=== PATIENT | female | born 1995 | race Caucasian/White ===

== ENCOUNTER 2016-12-11 12:21 | Emergency (ER) | payer OTHER ==
[2016-12-11 12:33] VITALS: BP 125/81
--- NOTE | 2016-12-11 13:20 | UC ---
Throat Pain/Nasal Giancarlo HPI - History of Current Complaint Chief Complaint: UCGI Stated Complaint: VOMITING,SORE THROAT,FEVER,EAR PAIN Time Seen by Provider: 12/11/16 13:10 Hx Last Menstrual Period: 11/13/16 Onset/Duration: Sudden Onset - Nausea vomiting, sore throat, Lasting Days - 4, Still Present - ongoing Cough: None Associated Signs & Symptoms: Positive: Dysphagia, Nasal Discharge, Vomiting. Negative: Wheezing, Hoarseness, Sinus Discomfort, Rash - Allergies/Home Medications Allergies/Adverse Reactions: Allergies Allergy/AdvReac Type Severity Reaction Status Date / Time No Known Allergies Allergy Verified 12/11/16 12:33 Home Medications: Home Medications Norgestimate-Eth Estradiol(NF) [Ortho Tri-Cyclen (NF)] 1 tab PO DAILY 12/11/16 [ History Confirmed 12/11/16] PMH/Surg Hx/FS Hx/Imm Hx GI/ History: Kidney Stones - Surgical History Surgical History: Yes Surgery Procedure, Year, and Place: tear duct as - Family History Known Family History: Negative: Cardiac Disease, Hypertension, Diabetes - Social History Occupation: Employed Full-time, Student Lives: With Family Alcohol Use: None Substance Use Type: None Smoking Status (MU): Never Smoked Tobacco Have You Smoked in the Last Year: No - Immunization History Vaccination Up to Date: Yes Review of Systems ENT: Sore Throat, Ear Ache Gastrointestinal: Vomiting All Other Systems Reviewed And Are Negative: Yes Physical Exam Triage Information Reviewed: Yes Appearance: No Pain Distress, Well-Nourished, Ill-Appearing Vital Signs: Initial Vital Signs Temp 99 F 12/11/16 12:25 Pulse 88 12/11/16 12:25 Resp 18 12/11/16 12:25 BP 125/81 12/11/16 12:25 Pulse Ox 98 12/11/16 12:25 Vital Signs Reviewed: Yes Eyes: Positive: Conjunctiva Clear ENT: Positive: Pharyngeal erythema - with petechia, Nasal congestion, TMs normal Neck: Positive: Tenderness @ - Anterior cervical nodes right> left, Enlarged Nodes @ - bilateral anterior cervical Respiratory Exam: Normal Cardiovascular Exam: Normal Abdomen Description: Positive: Nontender, No Organomegaly, Soft Bowel Sounds: Positive: Present Musculoskeletal Exam: Normal Neurological Exam: Normal Psychological Exam: Normal Skin Exam: Normal Throat Pain/Nasal Course/Dx - Differential Dx/Diagnosis Differential Diagnosis/HQI/PQRI: Peritonsillar Abscess, Pharyngitis, URI Provider Diagnoses: Acute URI. Vomiting. Discharge - Discharge Plan Condition: Stable Disposition: HOME Prescriptions: Ondansetron ODT TAB* [Zofran 4 MG Odt TAB*] 4 mg PO Q6H PRN #14 tab.odt PRN Reason: Nausea/Vomiting Patient Education Materials: Upper Respiratory Infection (ED), Acute Nausea and Vomiting (ED), Ondansetron (By mouth) Additional Instructions: NASAL SPRAYS AND DROPS: Afrin in the PUMP/ MIST bottle. Tilt your head down and look at the floor while doing a strong sniff with the spray. Decongestant nasal sprays and drops often give dramatic relief from congestion. They are often recommended for patients with sinus infection to assist with sinus drainage. Persons with high blood pressure should consult the doctor before using these nasal sprays. Afrin and Timo-Synephrine are common [id number]-oqb-[id number] preparations. They should not be used for more than five days, as "rebound" congestion can occur - - the congestion flares as the drug wears off. A way of dealing with this rebound congestion problem is to medicate only one nostril each time, allowing the other nostril to recover from the medicine' s effects. When you no longer need the drug during the day, spray only one nostril each night. This helps you sleep well without severe rebound congestion. Call the doctor if you develop severe headache, palpitations, or chest pain. NAVITIME JAPANMED SINUS RINSE: CHECK OUT AT [facility] Saline nasal wash helps with mucous, allergies and congestion. It can be used up to twice a day or only as needed. Use lukewarm tap water. It does not have to be sterilized or distilled water. Do 1/3 on each side and snort out of both nostrils. Repeat the process with 1/6 of the bottle on each side with snorting in between to finish the solution in the bottle
[2016-12-11] MEDS ORDERED: Ondansetron ODT TAB* 4 MG PO ONE (13:21)
[2016-12-11] MEDS ORDERED: Ondansetron INJ* 2 MG/ML VIAL IM ONE (13:45)
== END 2016-12-11 14:25 | disposition home or self-care (01) ==
LOC: UCCORT 12:21
DX: J06.9 Acute upper respiratory infection, unspecified (principal); R11.10 Vomiting, unspecified
CPT/HCPCS: 87651; 96372; 99212; A9270-GY; G0463; J2405

== ENCOUNTER 2017-07-14 16:13 | Emergency (ER) | payer OTHER ==
[2017-07-14 17:09] VITALS: BP 124/63
--- NOTE | 2017-07-14 17:18 | UC ---
Respiratory Complaint HPI - HPI Summary HPI Summary: 22F presents with cough and sinus congestion for a week. She admits to pressure behind her ears. She tried some OTC cough medication without relief. She denies any chest pain or SOB. She denies any abdominal pain, nausea or vomiting. She admits to minimal sore throat. She denies any headache. She has minimal sinus pressure. She states her ears and cough are bothering her the most. - History of Current Complaint Chief Complaint: UCGeneralIllness Stated Complaint: SINUS,COUGH,BILATERAL EAR PAIN Time Seen by Provider: 07/14/17 17:11 Hx Last Menstrual Period: 11/13/16 Pain Intensity: 2 - Allergies/Home Medications Allergies/Adverse Reactions: Allergies Allergy/AdvReac Type Severity Reaction Status Date / Time No Known Allergies Allergy Verified 07/14/17 17:09 PMH/Surg Hx/FS Hx/Imm Hx Endocrine History: Other Other Endocrine History: no DM Respiratory History: Other Other Respiratory History: no asthma - Surgical History Surgical History: Yes Surgery Procedure, Year, and Place: tear duct as - Family History Known Family History: Negative: Cardiac Disease, Hypertension, Diabetes - Social History Alcohol Use: None Substance Use Type: None Smoking Status (MU): Never Smoked Tobacco Have You Smoked in the Last Year: No - Immunization History Vaccination Up to Date: Yes Review of Systems Constitutional: Negative ENT: Ear Ache, Nasal Discharge Respiratory: Cough All Other Systems Reviewed And Are Negative: Yes Physical Exam Triage Information Reviewed: Yes Appearance: Well-Appearing Vital Signs: Initial Vital Signs Temp 99.4 F 07/14/17 17:05 Pulse 86 07/14/17 17:05 Resp 16 07/14/17 17:05 BP 124/63 07/14/17 17:05 Pulse Ox 99 07/14/17 17:05 Vital Signs Reviewed: Yes Eye Exam: Normal ENT: Positive: Normal ENT inspection, Pharynx normal, Nasal congestion, TMs normal. Negative: Sinus tenderness Neck: Positive: Supple, Nontender, No Lymphadenopathy Respiratory: Positive: Lungs clear, Normal breath sounds Cardiovascular: Positive: RRR Abdomen Description: Positive: Nontender, Soft Bowel Sounds: Positive: Present Musculoskeletal Exam: Normal Neurological Exam: Normal Psychological Exam: Normal Skin Exam: Normal UC Diagnostic Evaluation - Laboratory O2 Sat by Pulse Oximetry: 99 Respiratory Course/Dx - Course Course Of Treatment: 22F presents with cough and sinus congestion for a week. She admits to pressure behind her ears. She tried some OTC cough medication without relief. She denies any chest pain or SOB. She denies any abdominal pain , nausea or vomiting. She admits to minimal sore throat. She denies any headache. She has minimal sinus pressure. She states her ears and cough are bothering her the most. on exam lungs CTA. pharynx normal. fluid behind TM but no infection. will treat with tessalon for cough and encourage sudafed for sinus congestion. no sinus tenderness on exam and does not appear to have sinus infection at this point. patient understand and agrees with plan. - Differential Dx/Diagnosis Differential Diagnosis/HQI/PQRI: Bronchitis, Laryngitis, Lower Resp Infection Provider Diagnoses: upper respiratory infection Discharge - Discharge Plan Condition: Good Disposition: HOME Prescriptions: Benzonatate CAP* [Tessalon 100 MG CAP*] 100 mg PO TID #21 cap Patient Education Materials: Upper Respiratory Infection (ED) Referrals: Samia Gong MD [Primary Care Provider] - Additional Instructions: Use Tessalon three times a day for cough Use saline in the nose for nasal congestion Use humidifier or place warm bowls of water around the room for cough Cough can last up to 4 weeks Follow up with primary care physician in 5 days Return to ED if develop any new or worsening symptoms
== END 2017-07-14 17:23 | disposition home or self-care (01) ==
LOC: UCCORT 16:13
DX: J06.9 Acute upper respiratory infection, unspecified (principal)
CPT/HCPCS: 99212; G0463

== ENCOUNTER 2019-04-01 18:55 | Emergency (ER) | payer OTHER ==
--- OUTSIDE RECORDS SUMMARY | 2019-04-01 19:08 | XMS REPORT | Continuity of Care Document ---
:1995 External Reference #:[id number] Author Name Samia Gong M.D. Address [address] [place] [address] Problems Description No Information Available Social History Type Date Description Comments Sex Unknown Tobacco Use Start: Unknown Never Smoked Cigarettes ETOH Use Never used alcohol Recreational Drug Use Never Used Drugs Tobacco Use Start: Unknown Patient has never smoked Smoking Status Reviewed: 01/25/18 Patient has never smoked Seat Belt/Car Seat Always uses seat belt Allergies, Adverse Reactions, Alerts Active Allergies Reaction Severity Comments Date Azithromycin 01/05/2018 Inactive Allergies NKDA 07/05/2016 Medications Active Medications SIG Qnty Indications Ordering Provider Date Loratadine 1 by mouth every 90caps J30.1 Samia Gong M.D. 02/07/2019 10mg day Capsules Fluticasone 2 spray each 32gm J30.1 Samia Gong M.D. 02/07/2019 Propionate nostril every day 50mcg/Act Suspension Ibuprofen 1 by mouth every 60tabs K00.6 Samia Gong M.D. 09/06/2018 600mg Tablets 6 hours as needed Penicillin V 1 by mouth four 30tabs K00.6 Samia Gong M.D. 09/06/2018 Potassium times a day 250mg Tablets History Medications No Active Medications Unknown 09/06/2018 - 09/06/2018 Medications Administered in Office Medication SIG Qnty Indications Ordering Provider Date PPD Injection Samia Gong M.D. 04/03/2018 PPD Injection Nurse 04/03/2018 PPD Injection Samia Gong M.D. 06/09/2017 PPD Injection Nurse 06/07/2017 PPD Injection Nurse 06/23/2016 History of Polio infection Samia Gong M.D. 08/16/2001 Injection History of Varicella infection Samia Gong M.D. 06/10/1999 Injection Immunizations CPT Code Status Date Vaccine Lot # [id number] Given 04/03/2018 Influenza Virus (Afluria) Split Virus 3 Years Of Age And Older [id number] Given 04/03/2018 Influenza Virus (Afluria) Split Virus 3 Years Of [id number] Age And Older [id number] Given 07/28/2017 Influenza Virus (Afluria) Split Virus 3 Years Of Age And Older [id number] Given 07/28/2017 Influenza Virus (Afluria) Split Virus 3 Years Of [id number] Age And Older [id number] Given 06/23/2016 Influenza Vaccine (Fluvirin) 3 Years Of Age Or [id number] Older 06878 Given 04/20/2012 Hepatitis A Vaccine [id number] Given 03/05/2008 Tetanus,Diphtheria,Adut/Adol Pertussis 32286 Given 03/05/2008 Gardasil 95972 Given 10/23/1997 MMR Virus Immunization [id number] Given 1996 Hepatitis B Vaccine Vital Signs Date Vital Result Comment 02/07/2019 10:58am BP Systolic 108 mmHg BP Diastolic 62 mmHg 09/06/2018 1:34pm BP Systolic 120 mmHg BP Diastolic 80 mmHg Heart Rate 66 /min Height 61 inches 5'1" Weight 122.00 lb BMI (Body Mass Index) 23.0 kg/m2 O2 % BldC Oximetry 98 % Results Description No Information Available Procedures Description No Information Available Medical Devices Description No Information Available Encounters Type Date Location Provider Dx Diagnosis Office Visit 09/06/2018 Main Office Samia Gong M.D. K00.6 Disturbances in tooth 1:30p eruption Assessments Date Code Description Provider 02/07/2019 J30.1 Allergic rhinitis due to pollen Samia Gong M.D. 02/07/2019 R11.0 Nausea Samia Gong M.D. 09/06/2018 K00.6 Disturbances in tooth eruption Samia Gong M.D. Plan of Treatment Future Appointment(s):08/03/2019 8:00 am - Nurse at [id number]/13/2019 10: 30 am - Samia Gong M.D. at [facility]/11/2018 - Samia Gong M.D.H65.02 Acute serous otitis media, left earNew Medication:Mucinex D 60-600 mg - 1 po bidComments:trial of decongestants if not better ENT referral Functional Status Description No Information Available Mental Status Description No Information Available Referrals Description No Information Available
[2019-04-01 19:13] VITALS: BP 138/80
--- NOTE | 2019-04-01 19:17 | UC ---
Complaint Female HPI - HPI Summary HPI Summary: 23-year-old female who started today with some low back pain. As the day has progressed that has increased and she has had some radiating left-sided pain. Her period is not due for 2 weeks. She is not sexually active presently. She has a history of kidney stones. She did notice mild pinkness to her urine today. She denies any burning on urination. She denies any fever or chills. - History Of Current Complaint Chief Complaint: UCGU Stated Complaint: BLOOD IN URINE/BACK PAIN/ABD CRAMPING Time Seen by Provider: 04/01/19 19:06 Hx Obtained From: Patient Hx Last Menstrual Period: 03/11/19 ?: No Onset/Duration: Sudden Onset Timing: Constant Severity Initially: Moderate Severity Currently: Moderate Pain Intensity: 5 Character: Sharp, Dull Aggravating Factor(s): Nothing Alleviating Factor(s): Nothing Associated Signs And Symptoms: Positive: Back Pain. Negative: Fever, Vaginal Bleeding/Discharge, Vaginal Discharge - Allergies/Home Medications Allergies/Adverse Reactions: Allergies Allergy/AdvReac Type Severity Reaction Status Date / Time azithromycin AdvReac Vomiting Verified 04/01/19 19:08 Home Medications: Home Medications Bcp 1 tab PO BEDTIME 04/01/19 [History Confirmed 04/01/19] PMH/Surg Hx/FS Hx/Imm Hx Previously Healthy: Yes GI/ History: Kidney Stones - Surgical History Surgical History: Yes Surgery Procedure, Year, and Place: tear duct as - Family History Known Family History: Negative: Cardiac Disease, Hypertension, Diabetes - Social History Lives: With Family Alcohol Use: Occasionally Substance Use Type: None Smoking Status (MU): Never Smoked Tobacco Have You Smoked in the Last Year: No - Immunization History Vaccination Up to Date: Yes Review of Systems All Other Systems Reviewed And Are Negative: Yes Genitourinary: Positive: Hematuria - Very mild occasional pink urine today.. Negative: Vaginal/Penile Burning, Vaginal/Penile Itching, Vaginal/Penile Discharge, Vaginal/Penile Pain, Vaginal/Penile Tenderness, Abnormal Bleeding Is Patient Immunocompromised?: No Physical Exam Triage Information Reviewed: Yes Appearance: Well-Appearing, No Pain Distress, Well-Nourished Vital Signs: Initial Vital Signs Temp 98.7 F 04/01/19 19:09 Pulse 85 04/01/19 19:09 Resp 16 04/01/19 19:09 BP 138/80 04/01/19 19:09 Pulse Ox 100 04/01/19 19:09 Eyes: Positive: Conjunctiva Clear ENT: Positive: Hearing grossly normal, Pharynx normal, TMs normal, Uvula midline Neck: Positive: Supple, Nontender, No Lymphadenopathy Respiratory: Positive: Lungs clear, Normal breath sounds, No respiratory distress, No accessory muscle use Cardiovascular: Positive: RRR, No Murmur, Pulses Normal, Brisk Capillary Refill Abdomen Description: Positive: No Organomegaly, Soft, Other: - Very mild left sided discomfort on deep palpation but no rigidity rebound or guarding. No pelvic pain.. Negative: CVA Tenderness (R), CVA Tenderness (L), Distended, Guarding, Hepatomegaly, McBurney's Point Tenderness, Splenomegaly Bowel Sounds: Positive: Present Musculoskeletal: Positive: Strength Intact, ROM Intact, No Edema Neurological: Positive: Alert, Muscle Tone Normal Psychological Exam: Normal Skin Exam: Normal Complaint Female Dx - Course Course Of Treatment: Ct Abdomen/Pelvis without contrast: FINDINGS: Lungs: No acute findings in visualized lung bases. Liver: Unremarkable. No mass. Gallbladder and bile ducts : Unremarkable. No calcified gallstones. No ductal dilation. Pancreas: Unremarkable. No ductal dilation. Spleen: Unremarkable. No splenomegaly. Adrenals: Unremarkable. No mass. Kidneys and ureters: No hydronephrosis. 3 mm calcification noted in the left pelvis, suggesting either phleboliths or distal ureteral calculus. Single punctate nonobstructing calculus in lower pole of right kidney. 2 nonobstructing calculi in the interpolar region of the left kidney, largest measuring 5 mm. Stomach and bowel: No dilated bowel to suggest obstruction. Appendix: Not identified. Intraperitoneal space: Small amount of free fluid in the pelvis. No free intraperitoneal air. Intraperitoneal space: No free air or significant free fluid. Lymph nodes: No enlarged lymph nodes. Bladder: The urinary bladder is decompressed but contains no calcified stones. Reproductive: Unremarkable as visualized. Bones/joints: No acute fracture. Soft tissues: Unremarkable. IMPRESSION: 1. 3 mm calcification in left pelvis, likely a distal left ureteral stone. Phlebolith less likely but not excluded. If clinically indicated, repeat study with IV contrast couldn be performed to ascertain location of calculus. 2. Bilateral nonobstructing renal calculi. No hydronephrosis. 3. Small amount of free fluid in the pelvis. 4. Appendix not visualized. The patient was given Toradol 30 mg IM with good pain relief. She was given 1 [place] tablet here and a prescription for that for severe pain and to continue Motrin 600 mg by mouth every 8 hours for mild pain. She is to increase fluids. Because of her insurance she needs to go through her primary care provider for referral to a urologist which I advised her to do early this week. The patient is in agreement with this plan of action. She is to go to the emergency room if she develops any fever, chills, vomiting or worsening pain. - Differential Dx/Diagnosis Provider Diagnosis: Kidney stones Discharge ED - Sign-Out/Discharge Documenting (check all that apply): Patient Departure All imaging exams completed and their final reports reviewed: Yes - Discharge Plan Condition: Good Disposition: HOME Prescriptions: Ibuprofen TAB* [Motrin TAB* 600 MG] 600 mg PO Q8H PRN #15 tab PRN Reason: Pain - Mild oxyCODONE/Acetamin 5/325 MG* [Percocet 5/325 TAB*] 1 tab PO Q6H PRN #10 tab MDD 6 PRN Reason: Pain - Severe Patient Education Materials: Kidney Stones (ED) Referrals: Samia Gong MD [Primary Care Provider] - Additional Instructions: Increase fluids, use a Motrin every 8 hours for mild pain and the Percocet for severe pain. Definite follow-up with your primary care provider for a referral to a urologist. Go to the emergency room if you develop fever, chills, worsening symptoms or vomiting. - Billing Disposition and Condition Condition: GOOD Disposition: Home
[2019-04-01] MEDS ORDERED: Ketorolac INJ* 30 MG/ML 1 ML VIAL IM ONE (19:49)
[2019-04-01] MEDS ORDERED: HYDROcodone/ACETAMIN 5-325 MG* 1 TAB PO ONE (21:00)
== END 2019-04-01 21:09 | disposition home or self-care (01) ==
LOC: UCCORT 18:55
DX: N20.0 Calculus of kidney (principal); Z88.1 Allergy status to other antibiotic agents
CPT/HCPCS: 74176; 81003; 84702; 96372; 99212; G0463; J1885